=== PATIENT | female | born 1995 | race Caucasian/White ===

== ENCOUNTER → 2020-06-16 | Outpatient (CLI) | payer BC ==
[2020-06-16 15:31] LABS: HEMOGLOBIN 12.6 gm/dl (12.3-15.3); RED BLOOD COUNT 4.37 M/UL (4.00-5.10); WHITE BLOOD COUNT 11.6 K/UL (4.5-11.0)
[2020-06-17 08:14] LABS: RHEUMATOID ARTHRITIS FACTOR <10.0 IU/mL (0.0-13.9)
[2020-06-17 16:15] LABS: ENDOMYSIAL ANTIBODY IGA Negative (Negative); IMMUNOGLOBULIN A, QN, SERUM 173 mg/dL (87-352); T-TRANSGLUTAMINASE (TTG) IGA <2 U/mL (0-3); T-TRANSGLUTAMINASE (TTG) IGG 2 U/mL (0-5)
[2020-06-22 17:11] LABS: HLA B 27 DISEASE ASSOCIATION Negative (.)
== END ==
LOC: LAB 14:28
PROVIDERS: Internal Medicine
DX: R79.82 Elevated C-reactive protein (CRP) (principal); R76.8 Other specified abnormal immunological findings in serum; M25.50 Pain in unspecified joint; R70.0 Elevated erythrocyte sedimentation rate; M79.89 Other specified soft tissue disorders; R53.83 Other fatigue; D72.829 Elevated white blood cell count, unspecified
CPT/HCPCS: 36415; 81374; 82784; 83520; 83615; 85025; 85384; 86431